=== PATIENT | male | born 1960 | race Caucasian/White ===

== ENCOUNTER → 2020-01-11 10:02 | Outpatient (BNVA) | payer OTHER, SELFPAY | PROVIDERS: Family Provider Family Medicine; PCP Family Medicine; Visit Provider Otolaryngology | DX: K13.0 Diseases of lips (principal) | CPT/HCPCS: 99204; 99214 ==

== ENCOUNTER → 2021-03-05 10:19 | Outpatient (BNVA) | payer OTHER, SELFPAY | PROVIDERS: Family Provider Family Medicine; PCP Family Medicine; Visit Provider Surgery | DX: Z01.812 Encounter for preprocedural laboratory examination (principal); Z20.822 Contact with and (suspected) exposure to COVID-19 | CPT/HCPCS: 87635 ==

== ENCOUNTER 2021-03-08 05:52 | Day surgery (SDC) | payer OTHER, SELFPAY ==
[2021-03-06 08:54] VITALS: BMI 23.7
[2021-03-06 14:58] VITALS: BMI 27.2
[2021-03-08 06:23] VITALS: BP 149/91; PULSE 83; RESP 18; TEMP 36.3; O2SAT 96
[2021-03-08] MEDS: sodium chloride 0.9% 1,000 ML 30 ML IV (06:32)
--- NOTE | 2021-03-08 06:35 | ANES.PREANE2 ---
Pre-Anesthetic Assessment Pre-Anesthetic Assessment: Height/Weight: Height 1.78 m Weight 86.183 kg Temp Pulse Resp BP Pulse Ox 97.3 F L 83 18 149/91 96 03/08/21 06:23 03/08/21 06:23 03/08/21 06:23 03/08/21 06:23 03/08/21 06:23 Preop Diagnosis: screening Proposed Procedure: Operation Date: 03/08/21 07:00 Proposed Procedures p Colonoscopy 13263 Z12.11(Not Applicable) - Luiz Chávez MD Familial anesthetic complications: none Was Beta Naif taken within 24 hours: N/A Was Clonidine taken within 24 hours: N/A Last intake: Intake Last Liquid Date 03/07/21 Last Solid Date 03/06/21 Social: Social History: Alcohol Exam: Pre-Anes Outpt Exam: alert, oriented x 3 and clear to auscultation bilaterally Airway: Submandibular: WNL Cervical ROM: WNL MP: 2 Dentition: Full History/ROS: No significant history except as noted CV/HEM: CV/HEM: HTN : : None reported Hepatic: Hepatic: None reported GI: GI: None reported Metabolic: Metabolic: None reported Musc/skel: Musc/skel: None reported Neuropsych: Neuropsych: None reported Anesthetic Plan: ASA status: 2 Anesthesia: Anesthesia Evaluation and MAC Risk of > 500 ml blood loss (7ml/kg in children): No Meds/Allergies Current Medications: Current Medications Generic Name Dose Route Start Last Admin Trade Name Freq PRN Reason Stop Dose Admin Sodium Chloride 1,000 mls @ 30 ml s/hr 03/08/21 06:15 03/08/21 06:32 Sodium Chloride 0.9% IV 03/09/21 06:14 30 mls/hr .Q24H JENNY Administration PFSH Anesthesia PFSH: Medical History Deviated septum Lip mass precancerous lesion removed 1 year ago Family History Mother Dementia Father Cancer Social History Smoking and tobacco status: former smoker Alcohol intake: current Alcohol intake frequency: 0-2 Drinks per Day Alcohol type: beer Desire information about alcohol rehabilitation?: No Data Anesthesia Cardiac Studies: No Data to Display
--- NOTE | 2021-03-08 06:38 | W.PM.OPSUD ---
Surgery/Procedure H&P Update DATE OF PROCEDURE: March 08, 2021 DATE H&P PERFORMED: 02/27/21 H&P UPDATE INFORMATION: No changes to prior documentation PLANNED PROCEDURE: Operation Date: 03/08/21 07:00 Proposed Procedures p Colonoscopy 16110 Z12.11(Not Applicable) - Luiz Chávez MD
[2021-03-08 07:14] VITALS: BP 131/81; PULSE 100; RESP 18; TEMP 37.1; O2SAT 100
[2021-03-08 07:25] VITALS: BP 125/86; PULSE 71; RESP 18; TEMP 36.6; O2SAT 96
--- NOTE | 2021-03-08 08:24 | ANE.PACU2 ---
Inpatient post-anesthesia follow up: Airway intact: Yes Vital signs: Temperature 97.8 F Pulse Rate 71 Respiratory Rate 18 Blood Pressure 125/86 Pulse Oximetry 96 Oxygen Delivery Me thod Room Air Oxygen Flow Rate Fraction of Inspir ed Oxygen Hydration adequate: Yes Nausea and vomiting: No Mental status: Baseline
== END 2021-03-08 07:39 | disposition home or self-care (01) ==
PROVIDERS: Visit Provider Surgery
PROC: 0DJD8ZZ Inspection of Lower Intestinal Tract, Via Natural or Artificial Opening Endoscopic (ICD-10-PCS; CPT 45378; principal; 2021-03-08 07:00)
DX: Z12.11 Encounter for screening for malignant neoplasm of colon (principal); K64.8 Other hemorrhoids; D12.0 Benign neoplasm of cecum; I10 Essential (primary) hypertension; Z87.891 Personal history of nicotine dependence; E78.5 Hyperlipidemia, unspecified; Z79.82 Long term (current) use of aspirin
CPT/HCPCS: 12345; 45385; 88305; 96360; J2704; J7030

== ENCOUNTER 2022-01-22 06:00 | Outpatient (RCR) | payer OTHER, SELFPAY | END 2022-01-24 23:59 | disposition home or self-care (01) | LOC: SPT 06:00 | DX: M25.512 Pain in left shoulder (principal) | CPT/HCPCS: 97161 ==

== ENCOUNTER 2022-01-25 06:00 | Outpatient (RCR) | payer OTHER, SELFPAY | END 2022-02-23 23:59 | disposition home or self-care (01) | LOC: SPT 06:00 | DX: M25.512 Pain in left shoulder (principal) | CPT/HCPCS: 97110 ==

== ENCOUNTER 2022-02-24 06:00 | Outpatient (RCR) | payer OTHER, SELFPAY | END 2022-03-07 23:59 | disposition home or self-care (01) | LOC: SPT 06:00 | DX: M25.512 Pain in left shoulder (principal) | CPT/HCPCS: 97110 ==

== ENCOUNTER → 2022-02-28 14:07 | Outpatient (BNVA) | payer OTHER, SELFPAY | PROVIDERS: Visit Provider Nurse Practitioner Family | DX: J02.9 Acute pharyngitis, unspecified (principal); J01.90 Acute sinusitis, unspecified | CPT/HCPCS: 87880 ==

== ENCOUNTER → 2022-05-08 08:01 | Outpatient (BNVA) | payer OTHER, SELFPAY | PROVIDERS: Visit Provider Clinical Nurse Specialist Adult Health | DX: Z20.822 Contact with and (suspected) exposure to COVID-19 (principal) | CPT/HCPCS: 87426 ==

== ENCOUNTER → 2022-12-20 07:52 | Outpatient (BNVA) | payer OTHER, SELFPAY | PROVIDERS: PCP Clinical Nurse Specialist Adult Health; Visit Provider Clinical Nurse Specialist Adult Health | DX: Z00.00 Encounter for general adult medical examination without abnormal findings (principal); R73.03 Prediabetes | CPT/HCPCS: 80053; 80061; 83036; 84154; 85025 ==

== ENCOUNTER → 2024-01-02 07:25 | Outpatient (BNVA) | payer OTHER, SELFPAY | PROVIDERS: PCP Clinical Nurse Specialist Adult Health; Visit Provider Clinical Nurse Specialist Adult Health | DX: E78.5 Hyperlipidemia, unspecified (principal); R73.03 Prediabetes | CPT/HCPCS: 80053; 80061; 83036; 85025 ==

== ENCOUNTER 2024-08-01 15:06 | Observation (INO) | payer OTHER, SELFPAY ==
[2024-08-01] VITALS (9 sets, daily range): BP systolic 112–134; BP diastolic 62–80; PULSE 68–151; RESP 13–20; TEMP 36.3–36.6; O2SAT 93–98; BMI 27.5
--- NOTE | 2024-08-01 15:04 | ECG_ITS ---
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 Measurements Intervals [place] Rate: 147 P: 0 [place]: 0 QRS: 1 QRSD: 87 T: 98 QT: 223 QTc: 349 Interpretive Statements ATRIAL FLUTTER/TACHYCARDIA WITH RAPID VENTRICULAR RESPONSE POSSIBLE RIGHT VENTRICULAR CONDUCTION DELAY [RSR (QR) IN V1/V2] NONSPECIFIC ST & T-WAVE ABNORMALITY No previous ECG available for comparison Electronically Signed On 08-01-2024 22:42:29 CDT by Des Ragsdale M.D. [email or web address] [email or web address]/store/[id number]
--- NOTE | 2024-08-01 15:21 | XRR_ITS ---
PROCEDURE INFORMATION: Exam: XR Chest Exam date and time: 08/01/2024 3:55 PM Age: 63 years old Clinical indication: Patient HX: Tachycardia; SOB; HTN TECHNIQUE: Imaging protocol: Radiologic exam of the chest. Views: 1 view. COMPARISON: No relevant prior studies available. FINDINGS: Lungs: Lungs appear clear without consolidation. Pleural spaces: No pneumothorax or pleural effusion. Heart/Mediastinum: Normal size of the cardiac silhouette. Bones/joints: Regional osseous structures are unremarkable. XR/XR chest 1V portable [id number] IMPRESSION: No radiographically apparent cardiopulmonary disease.
[2024-08-01] MEDS: dilTIAZem 5 mg/mL SDV 5 mL 20 MG IVP (15:28)
[2024-08-01 15:31] LABS: Basophils % 0.4 %; Eosinophils # 0.1 10^3/uL (0.0-0.8); Eosinophils % 1.7 %; Hematocrit 44.7 % (37-53); Lymphocytes # 1.4 10^3/uL (0.8-4.8); Lymphocytes % 18.2 %; Mean Corpuscular HGB Conc 33.3 g/dL (30-55); Mean Corpuscular Hemoglobin 29.2 pg (27-33); Mean Corpuscular Volume 87.6 fl (82-101); Mean Platelet Volume 9.5 fL (7.4-10.4); Monocytes # 0.5 10^3/uL (0.2-0.9); Monocytes % 6.7 %; Neutrophils # 5.57 10^3/uL (1.8-7.7); Neutrophils % 72.7 %; Nucleated Red Blood Cells % 0 %; Platelet Count 270 10^3/cmm (157-399); Red Cell Distribution Width 13.1 % (12.1-15.1); White Blood Count 7.65 10^3/uL (3.29-11.43)
--- NOTE | 2024-08-01 15:36 | W.ED.SOB ---
Documented by User: Carlos Holland DO 08/01/24 15:39 HPI - SOB/Dyspnea General: Chief Complaint: Shortness of Breath/Dyspnea Stated Complaint: sob,b/p and pluse high Time Seen by Provider: 08/01/24 15:21 History of Present Illness: HPI Narrative: Who presents to the ER complaining of fast heart rate shortness of breath. Today after he returned fishing he sat down and developed shortness of fast heart rate. It was about 2 hours prior to arrival. Patient is never had any problem like this before nor any cardiac history. Related Data Home Medications Medication Instructions Recorded Confirmed aspirin 81 mg tablet,delayed 81 mg PO DAILY 12/17/22 01/09/24 release (Adult Low Dose Aspirin) Previous Rx's Medication Instructions Recorded triamcinolone acetonide 0.5 % 1 applic topical DAILY #15 grams 12/17/22 topical cream Magic Mouthwash-Mix 1 part 10 ml buccal 2XD PRN mouth 12/29/23 diphenhydramine, 1 part nystatin, irritation #120 mL and 1 part mylanta-swish and spit nystatin 100,000 unit/mL oral 100,000 unit buccal DAILY PRN 12/29/23 suspension mouth irritation #60 mL pravastatin 40 mg tablet 40 mg PO DAILY #90 tabs 02/11/24 losartan 100 mg tablet 100 mg PO DAILY #90 tabs 06/18/24 Allergies Allergy/AdvReac Type Severity Reaction Status Date / Time No Known Allergies Allergy Verified 08/01/24 15:15 Review of Systems General: Reports: 10 or more systems reviewed and unremarkable except in HPI and below PFSH ED PFSH: Medical History Prediabetes 5.8% A1C 12/2023 Elevated LFTs Seasonal allergies GERD (gastroesophageal reflux disease) Hyperlipidemia Hypertension Deviated septum Lip mass precancerous lesion removed 1 year ago Surgical History History of anterior cruciate ligament surgery removed acl left knee History of colonoscopy April 2021-polyp removed- repeat 2025 Family History Mother Dementia Lung disease Father Cancer Social History Smoking and tobacco/nicotine status: former use of tobacco/nicotine Alcohol intake: current Alcohol intake frequency: 0-2 Drinks per Day Alcohol type: beer Substance/Drug Use: never Physical Exam Const: COMMON NORMALS: no acute distress, average body habitus, patient oriented x3, no limitations, healthy appearing, alert and well nourished HENMT: COMMON NORMALS: normocephalic, atraumatic, hearing grossly normal bilaterally, external ears normal, Normal external nose present and moist oral mucous membranes HEAD & SCALP: normocephalic and atraumatic NOSE: Normal external nose present EXTERNAL EAR: Yes external ears normal Neck/C-Spine: COMMON NORMALS: full ROM, no lymphadenopathy, supple, no meningeal signs, no JVD and Thyroid normal THYROID: Thyroid normal Chest: COMMONS NORMALS: normal inspection of the chest and normal palpation of entire chest wall Resp: COMMON NORMALS: normal respiratory effort, No retractions, No use of accessory muscles and clear to auscultation bilaterally AUSCULTATION: clear to auscultation bilaterally Cardio: COMMON NORMALS: no JVD, S1 normal heart sound present, S2 normal heart sound present, No gallops present (Cardio), No clicks present (Cardio) and No murmurs present (Cardio); negative for regular rhythm (Irregularly irregular tachycardic rhythm) RHYTHM: abnormal rhythm (Irregularly irregular tachycardic rhythm) HEART SOUNDS: S1 normal heart sound present and S2 normal heart sound present GI: COMMON NORMALS: Normal to inspection, nondistended, normoactive bowel sounds present, Soft to palpation, non-tender, No hepatosplenomegaly present and no masses PALPATION: Yes Soft to palpation and Yes No hepatosplenomegaly present Neuro: COMMON NORMALS: patient oriented x3 SENSORIUM/ORIENTATION: Yes alert MENINGEAL SIGNS: Yes no meningeal signs Course Vital Signs: Vital signs: Vital Signs Temperature 97.4 F L 08/01/24 15:12 Pulse Rate 70 08/01/24 20:29 Respiratory Rate 20 H 08/01/24 20:09 Blood Pressure 122/62 08/01/24 20:29 Pulse Oximetry 98 08/01/24 20:29 Oxygen Delivery Me thod Room Air 08/01/24 15:12 MDM - SOB/Dyspnea Medical Records I reviewed the patient's medical records. Lab Data I reviewed the patient's lab results. 08/01/24 15:25 08/01/24 15:25 Labs/Radiology: Radiology Impressions Chest X-Ray 08/01/24 15:21 IMPRESSION: No radiographically apparent cardiopulmonary disease. Laboratory Results WBC 7.65 10^3/uL (3.29-11.43) 08/01/24 15:25 RBC 5.10 10^6/uL (3.85-5.65) 08/01/24 15:25 Hgb 14.90 g/dL (11.27-16.99) 08/01/24 15:25 Hct 44.7 % (37-53) 08/01/24 15:25 MCV 87.6 fl (82-101) 08/01/24 15:25 MCH 29.2 pg (27-33) 08/01/24 15:25 MCHC 33.3 g/dL (30-55) 08/01/24 15:25 RDW 13.1 % (12.1-15.1) 08/01/24 15:25 Plt Count 270 10^3/cmm (157-399) 08/01/24 15:25 MPV 9.5 fL (7.4-10.4) 08/01/24 15:25 Neut % (Auto) 72.7 % 08/01/24 15:25 Lymph % (Auto) 18.2 % 08/01/24 15:25 [place] % (Auto) 6.7 % 08/01/24 15:25 Eos % (Auto) 1.7 % 08/01/24 15:25 Baso % (Auto) 0.4 % 08/01/24 15:25 Neut # (Auto) 5.57 10^3/uL (1.8-7.7) 08/01/24 15:25 Lymph # (Auto) 1.4 10^3/uL (0.8-4.8) 08/01/24 15:25 [place] # (Auto) 0.5 10^3/uL (0.2-0.9) 08/01/24 15:25 Eos # (Auto) 0.1 10^3/uL (0.0-0.8) 08/01/24 15:25 Baso # (Auto) 0.0 10^3/uL (0.0-0.1) 08/01/24 15:25 Nucleated RBC % (auto) 0 % 08/01/24 15:25 Nucleated RBCs # 0.0 /100WBC 08/01/24 15:25 PT 12.30 SECONDS (12.1-14.9) 08/01/24 15:25 INR 0.89 (0.8-1.2) 08/01/24 15:25 Sodium 139 mmol/L (136-145) 08/01/24 15:25 Potassium 4.1 mmol/L (3.5-5.1) 08/01/24 15:25 Chloride 105 mmol/L (98-107) 08/01/24 15:25 Carbon Dioxide 22 mmol/L (22-29) 08/01/24 15:25 Anion Gap 16.1 (5-19) 08/01/24 15:25 BUN 14 mg/dL (8-23) 08/01/24 15:25 Creatinine 1.1 mg/dL (0.7-1.2) 08/01/24 15:25 GFR Calculation 67.4 mL/min (90-130) L 08/01/24 15:25 Glucose 149 mg/dL (65-115) H 08/01/24 15:25 Calculated Osmolality 291 mOsm/kg (285-295) 08/01/24 15:25 Lactic Acid 1.1 mmol/L (0.5-2.2) 08/01/24 17:39 Calcium 8.7 mg/dL (8.5-10.5) 08/01/24 15:25 Total Bilirubin 0.4 mg/dL (0.15-1.2) 08/01/24 15:25 AST 31 U/L (0-40) 08/01/24 15:25 ALT 50 U/L (0-41) H 08/01/24 15:25 Alkaline Phosphatase 105 U/L (40-130) 08/01/24 15:25 Creatine Kinase 141 U/L (39-308) 08/01/24 15:25 Troponin T Baseline 7 ng/L (0-15) 08/01/24 15:25 Troponin T 120 Minute 8.57 ng/L (0-15) 08/01/24 17:39 Delta Troponin T 1.57 ABS# (0-10) 08/01/24 17:39 Total Protein 7.2 g/dL (6.6-8.7) 08/01/24 15:25 Albumin 4.6 g/dL (3.5-5.2) 08/01/24 15:25 Globulin 2.6 g/dL (1.3-4.6) 08/01/24 15:25 Procalcitonin 0.07 ng/mL (0-0.5) 08/01/24 15:25 TSH 1.96 uIU/mL (0.27-4.20) 08/01/24 15:25 All radiology interpretation(s) finalized by discharge Discharge Plan Discharge Patient Disposition: Placed in Observation Admit Provider: Chris Arenas Clinical Impression: Atrial fibrillation with RVR Condition: Stable Coding Level of Care Code ED Accreditation Coordinator for Chg Fwd Documented by User: Rocky Brock DO 08/01/24 20:51 HPI - SOB/Dyspnea General: Chief Complaint: Shortness of Breath/Dyspnea Stated Complaint: sob,b/p and pluse high Time Seen by Provider: 08/01/24 15:21 Related Data Home Medications Medication Instructions Recorded Confirmed aspirin 81 mg tablet,delayed 81 mg PO DAILY 12/17/22 01/09/24 release (Adult Low Dose Aspirin) Previous Rx's Medication Instructions Recorded triamcinolone acetonide 0.5 % 1 applic topical DAILY #15 grams 12/17/22 topical cream Magic Mouthwash-Mix 1 part 10 ml buccal 2XD PRN mouth 12/29/23 diphenhydramine, 1 part nystatin, irritation #120 mL and 1 part mylanta-swish and spit nystatin 100,000 unit/mL oral 100,000 unit buccal DAILY PRN 12/29/23 suspension mouth irritation #60 mL pravastatin 40 mg tablet 40 mg PO DAILY #90 tabs 02/11/24 losartan 100 mg tablet 100 mg PO DAILY #90 tabs 06/18/24 Allergies Allergy/AdvReac Type Severity Reaction Status Date / Time No Known Allergies Allergy Verified 08/01/24 15:15 PFS ED PFS: Medical History Prediabetes 5.8% A1C 12/2023 Elevated LFTs Seasonal allergies GERD (gastroesophageal reflux disease) Hyperlipidemia Hypertension Deviated septum Lip mass precancerous lesion removed 1 year ago Surgical History History of anterior cruciate ligament surgery removed acl left knee History of colonoscopy April 2021-polyp removed- repeat 2025 Family History Mother Dementia Lung disease Father Cancer Social History Smoking and tobacco/nicotine status: former use of tobacco/nicotine Alcohol intake: current Alcohol intake frequency: 0-2 Drinks per Day Alcohol type: beer Substance/Drug Use: never Course Vital Signs: Vital signs: Vital Signs Temperature 97.4 F L 08/01/24 15:12 Pulse Rate 70 08/01/24 20:29 Respiratory Rate 20 H 08/01/24 20:09 Blood Pressure 122/62 08/01/24 20:29 Pulse Oximetry 98 08/01/24 20:29 Oxygen Delivery Me thod Room Air 08/01/24 15:12 MDM - SOB/Dyspnea Medical Decision Making 63-year-old male patient checked out to me at shift change. This patient presented in new onset atrial fibrillation with rapid ventricular rate. He was given a Cardizem bolus, then oral Cardizem, then drip. He has since converted to sinus rhythm. He is afebrile. Current heart rate is sinus at 70 with blood pressure 122/62. CBC is normal. BMP is not remarkable. Chest x-ray is negative. Lactic acid is normal. TSH is 2. Delta is 2. Because onset is new, the patient has no prior history of coronary disease, and required significant amounts of medication for rate control/conversion, will observe. Echo in the morning, etc. He will go to the CSU. Lab Data 08/01/24 15:25 08/01/24 15:25 Labs/Radiology: Radiology Impressions Chest X-Ray 08/01/24 15:21 IMPRESSION: No radiographically apparent cardiopulmonary disease. Laboratory Results WBC 7.65 10^3/uL (3.29-11.43) 08/01/24 15:25 RBC 5.10 10^6/uL (3.85-5.65) 08/01/24 15:25 Hgb 14.90 g/dL (11.27-16.99) 08/01/24 15:25 Hct 44.7 % (37-53) 08/01/24 15:25 MCV 87.6 fl (82-101) 08/01/24 15:25 MCH 29.2 pg (27-33) 08/01/24 15:25 MCHC 33.3 g/dL (30-55) 08/01/24 15:25 RDW 13.1 % (12.1-15.1) 08/01/24 15: Plt Count 270 10^3/cmm (157-399) 08/01/24 15:25 MPV 9.5 fL (7.4-10.4) 08/01/24 15:25 Neut % (Auto) 72.7 % 08/01/24 15:25 Lymph % (Auto) 18.2 % 08/01/24 15:25 [place] % (Auto) 6.7 % 08/01/24 15:25 Eos % (Auto) 1.7 % 08/01/24 15:25 Baso % (Auto) 0.4 % 08/01/24 15:25 Neut # (Auto) 5.57 10^3/uL (1.8-7.7) 08/01/24 15:25 Lymph # (Auto) 1.4 10^3/uL (0.8-4.8) 08/01/24 15:25 [place] # (Auto) 0.5 10^3/uL (0.2-0.9) 08/01/24 15:25 Eos # (Auto) 0.1 10^3/uL (0.0-0.8) 08/01/24 15:25 Baso # (Auto) 0.0 10^3/uL (0.0-0.1) 08/01/24 15:25 Nucleated RBC % (auto) 0 % 08/01/24 15:25 Nucleated RBCs # 0.0 /100WBC 08/01/24 15:25 PT 12.30 SECONDS (12.1-14.9) 08/01/24 15:25 INR 0.89 (0.8-1.2) 08/01/24 15:25 Sodium 139 mmol/L (136-145) 08/01/24 15:25 Potassium 4.1 mmol/L (3.5-5.1) 08/01/24 15:25 Chloride 105 mmol/L (98-107) 08/01/24 15:25 Carbon Dioxide 22 mmol/L (22-29) 08/01/24 15:25 Anion Gap 16.1 (5-19) 08/01/24 15:25 BUN 14 mg/dL (8-23) 08/01/24 15:25 Creatinine 1.1 mg/dL (0.7-1.2) 08/01/24 15:25 GFR Calculation 67.4 mL/min (90-130) L 08/01/24 15:25 Glucose 149 mg/dL (65-115) H 08/01/24 15:25 Calculated Osmolality 291 mOsm/kg (285-295) 08/01/24 15:25 Lactic Acid 1.1 mmol/L (0.5-2.2) 08/01/24 17:39 Calcium 8.7 mg/dL (8.5-10.5) 08/01/24 15:25 Total Bilirubin 0.4 mg/dL (0.15-1.2) 08/01/24 15:25 AST 31 U/L (0-40) 08/01/24 15:25 ALT 50 U/L (0-41) H 08/01/24 15:25 Alkaline Phosphatase 105 U/L (40-130) 08/01/24 15:25 Creatine Kinase 141 U/L (39-308) 08/01/24 15:25 Troponin T Baseline 7 ng/L (0-15) 08/01/24 15:25 Troponin T 120 Minute 8.57 ng/L (0-15) 08/01/24 17:39 Delta Troponin T 1.57 ABS# (0-10) 08/01/24 17:39 Total Protein 7.2 g/dL (6.6-8.7) 08/01/24 15:25 Albumin 4.6 g/dL (3.5-5.2) 08/01/24 15:25 Globulin 2.6 g/dL (1.3-4.6) 08/01/24 15:25 Procalcitonin 0.07 ng/mL (0-0.5) 08/01/24 15:25 TSH 1.96 uIU/mL (0.27-4.20) 08/01/24 15:25 Discharge Plan Discharge Patient Disposition: Placed in Observation Admit Provider: Chris Arenas Clinical Impression: Atrial fibrillation with RVR Condition: Stable Coding Level of Care Code ED Accreditation Coordinator for Elif Nails
[2024-08-01 15:42] LABS: INR 0.89 (0.8-1.2)
[2024-08-01 15:48] LABS: Troponin(5th) Baseline 7 ng/L (0-15)
[2024-08-01 16:03] LABS: Alanine Aminotransferase 50 U/L (0-41); Albumin Level 4.6 g/dL (3.5-5.2); Alkaline Phosphatase 105 U/L (40-130); Aspartate Amino Transferase 31 U/L (0-40); Blood Urea Nitrogen 14 mg/dL (8-23); Calcium 8.7 mg/dL (8.5-10.5); Carbon Dioxide 22 mmol/L (22-29); Chloride 105 mmol/L (98-107); Creatinine Clr Calc Pharmacy 75.4588; Globulin 2.6 g/dL (1.3-4.6); Glomerular Filtration Rate 67.4 mL/min (90-130); Glucose 149 mg/dL (65-115); Osmolality Calculated 291 mOsm/kg (285-295); Sodium 139 mmol/L (136-145); Thyroid Stimulating Hormone 1.96 uIU/mL (0.27-4.20); Total Bilirubin 0.4 mg/dL (0.15-1.2); Total Protein 7.2 g/dL (6.6-8.7)
[2024-08-01 16:04] LABS: Anion Gap 16.1 (5-19); Potassium 4.1 mmol/L (3.5-5.1)
[2024-08-01] MEDS: dilTIAZem 30 mg Tablet PO ×2 (16:42→21:20)
--- NOTE | 2024-08-01 17:49 | ECG_ITS ---
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 Measurements Intervals [place] Rate: 117 P: 0 [place]: 0 QRS: 2 QRSD: 89 T: 46 QT: 311 QTc: 434 Interpretive Statements ATRIAL FIBRILLATION WITH RAPID VENTRICULAR RESPONSE ABNORMAL RHYTHM ECG Compared to ECG 08/01/2024 15:04:22 Atrial flutter no longer present T-wave abnormality no longer present Electronically Signed On 08-01-2024 23:04:41 CDT by Des Ragsdale M.D. [email or web address] Therapeuticsselect medical [facility].[employer]/store/[id number]
[2024-08-01 18:06] LABS: Troponin 5 2HR 8.57 ng/L (0-15); Troponin 5 2HR Delta 1.57 ABS# (0-10)
[2024-08-01 19:57] LABS: Lactic Sepsis W/Reflex 1.1 mmol/L (0.5-2.2)
[2024-08-01 19:57] LABS: Creatine Phosphokinase 141 U/L (39-308)
[2024-08-01 20:04] LABS: Procalcitonin 0.07 ng/mL (0-0.5)
--- NOTE | 2024-08-01 20:25 | PC.NURSE ---
Report was called to Davina ROE in CSU. All questions and concerns were addressed at time of report.
[2024-08-01] MEDS: sodium chloride 0.9% 1,000 ML 75 ML IV (21:20)
--- NOTE | 2024-08-01 21:21 | ECG_ITS ---
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 Measurements Intervals [place] Rate: 67 P: 26 VA: 148 QRS: 11 QRSD: 92 T: 31 QT: 402 QTc: 425 Interpretive Statements SINUS RHYTHM POSSIBLE RIGHT VENTRICULAR CONDUCTION DELAY [RSR (QR) IN V1/V2] Compared to ECG 08/01/2024 17:49:59 Atrial fibrillation no longer present Electronically Signed On 08-01-2024 23:08:40 CDT by Des Ragsdale M.D. [email or web address] sunflower county hospitalCreative Alliesuniversity hospitals [facility].[employer]/store/[id number]
--- NOTE | 2024-08-01 21:34 | P.HP_ITS ---
Providers/Chief Complaint 2 Admitting Physician: Chris Arenas MD Primary Care Provider: Hari Burk Chief Complaint: sob,b/p and pluse high History of Present Illness Lee Willis is a 63 year old male With a past medical history of hypertension, prediabetes, who was in his usual state of health until this afternoon when he started to feel palpitations while he was fishing. Patient states he has never had palpitations before. No known past history of A-fib or SVT. Upon presentation today patient was found to be in A-fib with RVR with heart rate in the 150s. He felt short of breath at this time. He received a Cardizem bolus and then he was started on a drip. He converted to sinus rhythm with heart rate ranging between 60 to 70 bpm. At the time of this assessment patient's heart rate is 61/min, blood pressure 122/73. He denies any dizziness. His electrolytes are grossly within normal limits. TSH is normal. Troponin series unremarkable. Denies any recent change in his medications.no past h/o CVA Review of Systems 2 General: Reports: 10 or more systems reviewed and unremarkable except in HPI and below Const: Denies: fever(s), chills or body aches Eyes: Denies: change in vision, blurry vision or photophobia ENMT: Reports: hoarseness; Denies: throat pain, enlarged tonsils, odynophagia or nasal congestion Card: Denies: chest pain, palpitations, irregular heart rhythm, edema, swelling of feet/ankles, lightheadedness, pre-syncope, dyspnea on exertion or orthopnea Resp: Denies: dyspnea, productive cough, non-productive cough, wheezing, stridor, pain on inspiration, change in phlegm color, hemoptysis or chest congestion GI: Denies: abdominal pain, nausea, vomiting, hematemesis, coffee ground emesis, dysphagia, heartburn, diarrhea, constipation, GI cramping, change in stool character, hematochezia or melena : Denies: flank pain, dysuria, urinary frequency, urinary urgency, urinary hesitancy or hematuria Musc: Denies: neck pain, back pain, extremity pain, joint swelling, joint warmth or deformity Neuro: Denies: headache(s), numbness in extremities, weakness in extremities, sensory changes, difficulty walking, frequent falls, dizziness, vertigo, behavioral changes, Slurred speech present or seizure-like activity Psych: Denies: anxiety, depression, suicidal ideation or homicidal ideation Endo: Denies: polyuria, polydipsia, tired all the time, cold intolerance or hot flashes Je[place]arlos/Lymph: Denies: easy bruising or easy bleeding Medications/Allergies Home Medications Medication Instructions Recorded Confirmed Last Taken Type aspirin 81 mg tablet,delayed 81 mg PO BEDTIME 12/17/22 08/01/24 Unknown History release (Adult Low Dose Aspirin) levocetirizine 5 mg tablet 5 mg PO BEDTIME 08/01/24 08/01/24 Unknown History losartan 100 mg tablet 100 mg PO BEDTIME 08/01/24 08/01/24 Unknown History pravastatin 40 mg tablet 40 mg PO BEDTIME 08/01/24 08/01/24 Unknown History Allergies Allergy/AdvReac Type Severity Reaction Status Date / Time No Known Allergies Allergy Verified 08/01/24 15:15 PFSH Acute 2 PFSH: Medical History Prediabetes 5.8% A1C 12/2023 Elevated LFTs Seasonal allergies GERD (gastroesophageal reflux disease) Hyperlipidemia Hypertension Deviated septum Lip mass precancerous lesion removed 1 year ago Surgical History History of anterior cruciate ligament surgery removed acl left knee History of colonoscopy April 2021-polyp removed- repeat 2025 Family History Mother Dementia Lung disease Father Cancer Social History Smoking and tobacco/nicotine status: former use of tobacco/nicotine Alcohol intake: current Alcohol intake frequency: 0-2 Drinks per Day Alcohol type: beer Substance/Drug Use: never Vitals/I&O/Wt Last Vital Signs Temp 97.7 F 08/01/24 20:44 Pulse 74 08/01/24 20:44 Resp 13 08/01/24 20:44 BP 127/75 08/01/24 20:44 Pulse Ox 98 08/01/24 20:29 O2 Del Method Room Air 08/01/24 15:12 Weight last 48 hrs Weight 91.7 kg Weight 87.09 kg Physical Exam 2 Narrative: General: No acute distress, AO x3 HEENT: PERRLA, pupils bilaterally equal and reactive, pallors not present Chest: Normal vesicular breath sounds, no added sounds, equal good air entry bilaterally CVS: S1-S2 regular, no murmurs, no tachycardia, no gallops, no rubs Abdomen: Soft, nontender, no organomegaly, bowel sounds present Neuro: No focal deficits, no facial deformity, AO x3, power 5/5 in all limbs Extremities: no edema clubbing or cyanosis Data 08/01/24 15:25 08/01/24 15:25 Other data: XR/XR chest 1V portable [id number] IMPRESSION: No radiographically apparent cardiopulmonary disease. A&P Assessment and plan (1) Atrial fibrillation with RVR: New onset A-fib with RVR. admit to [facility] with continous telemetry Patient denies any past known history of arrhythmias. Baseline troponin at 7, 2 hours at 8, 6 hours at 11, no significant delta at 2 hours. He received Cardizem push in the emergency room and was started on a Cardizem infusion. He converted into normal sinus rhythm while being in the emergency room. The time of this assessment heart rate is in the 60s, blood pressure 122/73. Once.Will start patient on Cardizem 30 mg every 6 hours for rate control. Dose may need to be titrated based on response. Check echocardiogram to evaluate for underlying structural valvular abnormalities. CHADS2 Vasc2 at 1 for hypertension. Will check HbA1c as it may alter his scoring., previously patient was prediabetic. Discussed with him starting anticoagulation to minimize risk of stroke, patient would like to think a little bit more about this. Discussed options to start anticoagulation with DOACs versus increasing aspirin to 325 mg for now. (2) Hypertension: Continue home dose of losartan 100 mg p.o. at bedtime Qualifiers: Hypertension type: primary hypertension Qualified Code(s): I10 - Essential (primary) hypertension Plan DVT prophylaxis: Low risk, SCDs Full code Attestations 2 Medical Necessity Statement*: Less than 2 midnight stay is anticipated for new onset A-fib with RVR evaluation Coding Level of Care Code Acute Code for Chg Fwd Moderate MDM includes number and complexity of problems actively addressed during encounter, amount and/or complexity of data reviewed/ordered and described risk of complication, morbidity or mortality of management as documented Diagnoses Atrial fibrillation with RVR I48.91 Primary hypertension I10 Hypertension type: primary hypertension
[2024-08-01 21:40] LABS: Iron 101 ug/dL (59-158); Percent Saturation 33.4 % (20-50); Total Iron Binding Capacity 302 mcg/dl; Unsaturated Iron Binding 201 ug/dL (112-347)
[2024-08-01 21:55] LABS: Vitamin B12 490 pg/mL (232-1245)
[2024-08-01 22:02] LABS: Bilirubin Urine Negative (Negative); Blood Urine Negative (Negative); Glucose Urine UA Negative (Normal); Ketones Urine Negative (Negative); Leukocyte Esterase Urine Negative (Negative); Nitrate Urine Negative (Negative); Protein Urine Negative (Negative); Specific Gravity, Urine 1.019 (1.005-1.030); Urine Appearance Clear (CLEAR); Urine Color Yellow (Yellow); Urobilinogen Urine 0.2 mg/dL (Negative)
[2024-08-01 22:03] LABS: Troponin 5 6HR 11.83 ng/L (0-15); Troponin 5 6HR Delta 4.83 ng/L (0-12)
[2024-08-01 22:05] LABS: Add Urine Microscopic? YES; Bacteria Urine None Seen /hpf; RBC Urine 0-2 /hpf (0-2); Squamous Epithelial Cell Urine 0-5 /hpf (0-5); WBC Urine 0-5 /hpf (0-5)
[2024-08-01] MEDS: aspirin 81 mg EC Tablet PO (22:09)
[2024-08-01] MEDS: atorvastatin 40 mg Tablet 20 MG PO (22:09)
[2024-08-01 22:29] LABS: D Dimer 0.41 ug/mLFEU (0-0.59)
--- NOTE | 2024-08-02 03:35 | PC.NURSE ---
patient running sinus bradycardia in low 50's, notified Dr Li and received order to hold cardizem dose
[2024-08-02 04:00] VITALS: BP 122/73; PULSE 62; RESP 23; TEMP 36.7
[2024-08-02 05:34] VITALS: PULSE 61
[2024-08-02 07:02] LABS: Basophils % 0.7 %; Eosinophils # 0.2 10^3/uL (0.0-0.8); Eosinophils % 4.4 %; Hematocrit 39.1 % (37-53); Lymphocytes # 1.4 10^3/uL (0.8-4.8); Lymphocytes % 31.7 %; Mean Corpuscular Hemoglobin 29.3 pg (27-33); Mean Corpuscular Volume 88.7 fl (82-101); Mean Platelet Volume 9.9 fL (7.4-10.4); Monocytes # 0.4 10^3/uL (0.2-0.9); Monocytes % 9.3 %; Neutrophils % 53.7 %; Nucleated Red Blood Cells % 0 %; Platelet Count 240 10^3/cmm (157-399); Red Blood Count 4.41 10^6/uL (3.85-5.65); Red Cell Distribution Width 13.2 % (12.1-15.1); White Blood Count 4.29 10^3/uL (3.29-11.43)
[2024-08-02 07:16] LABS: Estmated Average Glucose 123; Hemoglobin A1C 5.9 % (4.0-6.0)
[2024-08-02 07:17] VITALS: BP 119/78; PULSE 62; RESP 16; TEMP 36.6; O2SAT 98
[2024-08-02 07:19] LABS: Alanine Aminotransferase 41 U/L (0-41); Albumin Level 3.7 g/dL (3.5-5.2); Alkaline Phosphatase 76 U/L (40-130); Anion Gap 10.8 (5-19); Aspartate Amino Transferase 24 U/L (0-40); Blood Urea Nitrogen 13 mg/dL (8-23); Calcium 7.5 mg/dL (8.5-10.5); Carbon Dioxide 25 mmol/L (22-29); Chloride 108 mmol/L (98-107); Chol HDL Ratio 4.82 mg/dL (1.0-5.00); Cholesterol 135 mg/dL (0-200); Creatinine Clr Calc Pharmacy 84.5711; Globulin 2.1 g/dL (1.3-4.6); Glomerular Filtration Rate 75.2 mL/min (90-130); Glucose 124 mg/dL (65-115); HDL Cholesterol 28 mg/dL (60-100); LDL Cholesterol Calculated 84 mg/dL (50-129); Magnesium 2.1 mg/dL (1.7-2.3); Osmolality Calculated 292 mOsm/kg (285-295); Phosphorus 3.1 mg/dL (2.5-4.5); Potassium 3.8 mmol/L (3.5-5.1); Sodium 140 mmol/L (136-145); Total Bilirubin 0.5 mg/dL (0.15-1.2); Total Protein 5.8 g/dL (6.6-8.7); Triglycerides 115 mg/dL (0-150)
[2024-08-02] MEDS: famotidine 20 mg Tablet PO (08:09)
[2024-08-02] MEDS: dilTIAZem 30 mg Tablet PO ×2 (08:09→14:01)
--- NOTE | 2024-08-02 08:39 | P.DS_ITS ---
Discharge Providers Date of Admission: 08/01/24 19:33 Date of Discharge: August 02, 2024 Attending Provider at Admission: Chris Arenas MD Attending Provider at Discharge: Sarah Falcon MD Primary Care Provider: Hari Burk Diagnoses at Discharge Discharge Diagnosis (1) Atrial fibrillation with RVR: Status: Resolved (2) Hypertension: Status: Acute Qualifiers: Hypertension type: primary hypertension Qualified Code(s): I10 - Essential (primary) hypertension Reason for Visit Reason for Visit: sob,b/p and pluse high Hospital Course Hospital Course Patient presented to the hospital with palpitations while he was fishing he was diagnosed with atrial fibrillation and placed on a Cardizem drip thereby transition to oral Cardizem. [id number] was 2 points as patient is turning 64 next month. Discussed with cardiology and placed patient on Eliquis for stroke prevention. Provided patient cardiology consult as an outpatient and discharged home in stable condition. Echo was reviewed prior to discharge. Physical Exam Narrative: General: No acute distress, AO x3 HEENT: PERRLA, pupils bilaterally equal and reactive, pallors not present Chest: Normal vesicular breath sounds, no added sounds, equal good air entry bilaterally CVS: S1-S2 regular, no murmurs, no tachycardia, no gallops, no rubs Abdomen: Soft, nontender, no organomegaly, bowel sounds present Neuro: No focal deficits, no facial deformity, AO x3, power 5/5 in all limbs Extremities: no edema clubbing or cyanosis Discharge Data Studies Completed and Pending Completed Studies During Hospitalization Category Date Time Status XR chest 1V portable [id number] Stat Exams 08/01/24 15:21 Completed Pending at discharge Category Date Time Status Folate Level AM LABS Lab 08/02/24 04:00 Ordered CV. echo complete* [id number] Stat Ultrasound 08/02/24 09:30 Ordered Radiology Impressions Chest X-Ray 08/01/24 15:21 IMPRESSION: No radiographically apparent cardiopulmonary disease. Laboratory Results WBC 4.29 10^3/uL (3.29-11.43) 08/02/24 06:02 RBC 4.41 10^6/uL (3.85-5.65) 08/02/24 06:02 Hgb 12.90 g/dL (11.27-16.99) 08/02/24 06:02 Hct 39.1 % (37-53) 08/02/24 06:02 MCV 88.7 fl (82-101) 08/02/24 06:02 MCH 29.3 pg (27-33) 08/02/24 06:02 MCHC 33.0 g/dL (30-55) 08/02/24 06:02 RDW 13.2 % (12.1-15.1) 08/02/24 06:02 Plt Count 240 10^3/cmm (157-399) 08/02/24 06:02 MPV 9.9 fL (7.4-10.4) 08/02/24 06:02 Neut % (Auto) 53.7 % 08/02/24 06:02 Lymph % (Auto) 31.7 % 08/02/24 06:02 [place] % (Auto) 9.3 % 08/02/24 06:02 Eos % (Auto) 4.4 % 08/02/24 06:02 Baso % (Auto) 0.7 % 08/02/24 06:02 Neut # (Auto) 2.30 10^3/uL (1.8-7.7) 08/02/24 06:02 Lymph # (Auto) 1.4 10^3/uL (0.8-4.8) 08/02/24 06:02 [place] # (Auto) 0.4 10^3/uL (0.2-0.9) 08/02/24 06:02 Eos # (Auto) 0.2 10^3/uL (0.0-0.8) 08/02/24 06:02 Baso # (Auto) 0.0 10^3/uL (0.0-0.1) 08/02/24 06:02 Nucleated RBC % (auto) 0 % 08/02/24 06:02 Nucleated RBCs # 0.0 /100WBC 08/02/24 06:02 PT 12.30 SECONDS (12.1-14.9) 08/01/24 15:25 INR 0.89 (0.8-1.2) 08/01/24 15:25 D-Dimer 0.41 ug/mLFEU (0-0.59) 08/01/24 15:25 Sodium 140 mmol/L (136-145) 08/02/24 06:02 Potassium 3.8 mmol/L (3.5-5.1) 08/02/24 06:02 Chloride 108 mmol/L (98-107) H 08/02/24 06:02 Carbon Dioxide 25 mmol/L (22-29) 08/02/24 06:02 Anion Gap 10.8 (5-19) 08/02/24 06:02 BUN 13 mg/dL (8-23) 08/02/24 06:02 Creatinine 1.0 mg/dL (0.7-1.2) 08/02/24 06:02 GFR Calculation 75.2 mL/min (90-130) L 08/02/24 06:02 Glucose 124 mg/dL (65-115) H 08/02/24 06:02 Estimat Average Glucose 123 08/02/24 06:02 Hemoglobin A1c 5.9 % (4.0-6.0) 08/02/24 06:02 Calculated Osmolality 292 mOsm/kg (285-295) 08/02/24 06:02 Lactic Acid 1.1 mmol/L (0.5-2.2) 08/01/24 17:39 Calcium 7.5 mg/dL (8.5-10.5) L 08/02/24 06:02 Phosphorus 3.1 mg/dL (2.5-4.5) 08/02/24 06:02 Magnesium 2.1 mg/dL (1.7-2.3) 08/02/24 06:02 Iron 101 ug/dL (59-158) 08/01/24 15:25 TIBC 302 mcg/dl 08/01/24 15:25 % Saturation 33.4 % (20-50) 08/01/24 15:25 Unsat Iron Binding 201 ug/dL (112-347) 08/01/24 15:25 Total Bilirubin 0.5 mg/dL (0.15-1.2) 08/02/24 06:02 AST 24 U/L (0-40) 08/02/24 06:02 ALT 41 U/L (0-41) 08/02/24 06:02 Alkaline Phosphatase 76 U/L (40-130) 08/02/24 06:02 Creatine Kinase 141 U/L (39-308) 08/01/24 15:25 Troponin T Baseline 7 ng/L (0-15) 08/01/24 15:25 Troponin T 120 Minute 8.57 ng/L (0-15) 08/01/24 17:39 Delta Troponin T 1.57 ABS# (0-10) 08/01/24 17:39 Troponin T Hi Sens 6Hr 11.83 ng/L (0-15) 08/01/24 21:38 Troponin T Hi Sens 6Hr Delta 4.83 ng/L (0-12) 08/01/24 21:38 Total Protein 5.8 g/dL (6.6-8.7) L 08/02/24 06:02 Albumin 3.7 g/dL (3.5-5.2) 08/02/24 06:02 Globulin 2.1 g/dL (1.3-4.6) 08/02/24 06:02 Triglycerides 115 mg/dL (0-150) 08/02/24 06:02 Cholesterol 135 mg/dL (0-200) 08/02/24 06:02 LDL Cholesterol, Calc 84 mg/dL (50-129) 08/02/24 06:02 HDL Cholesterol 28 mg/dL (60-100) L 08/02/24 06:02 LDL/HDL Ratio 3.00 RATIO (0.00-3.22) 08/02/24 06:02 Cholesterol/HDL Ratio 4.82 mg/dL (1.0-5.00) 08/02/24 06:02 Vitamin B12 490 pg/mL (232-1245) 08/01/24 15:25 Procalcitonin 0.07 ng/mL (0-0.5) 08/01/24 15:25 TSH 1.96 uIU/mL (0.27-4.20) 08/01/24 15:25 Urine Color Yellow (Yellow) 08/01/24 21:20 Urine Appearance Clear (CLEAR) 08/01/24 21:20 Urine pH 5.0 (5-7) 08/01/24 21:20 Ur Specific [place] 1.019 (1.005-1.030) 08/01/24 21:20 Urine Protein Negative (Negative) 08/01/24 21:20 Urine Glucose (UA) Negative (Normal) 08/01/24 21:20 Urine Ketones Negative (Negative) 08/01/24 21:20 Urine Blood Negative (Negative) 08/01/24 21:20 Urine Nitrate Negative (Negative) 08/01/24 21:20 Urine Bilirubin Negative (Negative) 08/01/24 21:20 Urine Urobilinogen 0.2 mg/dL (Negative) 08/01/24 21:20 Ur Leukocyte Esterase Negative (Negative) 08/01/24 21:20 Urine RBC 0-2 /hpf (0-2) 08/01/24 21:20 Urine WBC 0-5 /hpf (0-5) 08/01/24 21:20 Ur Squamous Epith Cells 0-5 /hpf (0-5) 08/01/24 21:20 Amorphous Sediment Not Reportable 08/01/24 21:20 Urine Bacteria None seen /hpf (NONE) 08/01/24 21:20 Hyaline Casts 0.40 /lpf 08/01/24 21:20 Vitals Last Vital Signs Temp 97.9 F 08/02/24 07:17 Pulse 62 08/02/24 07:17 Resp 16 08/02/24 07:17 BP 119/78 08/02/24 07:17 Pulse Ox 98 08/02/24 07:17 O2 Del Method Room Air 08/02/24 07:17 Discharge Plan Discharge Patient Disposition: Home Condition: Stable Prescriptions: New diltiazem HCl 120 mg capsule,extended release 24hr 120 mg PO DAILY Qty: 30 0RF Eliquis 5 mg tablet 5 mg PO BID Qty: 60 5RF Continued aspirin [Adult Low Dose Aspirin] 81 mg tablet,delayed release (DR/EC) 81 mg PO BEDTIME levocetirizine 5 mg Tablet 5 mg PO BEDTIME pravastatin 40 mg Tablet 40 mg PO BEDTIME Discontinued losartan 100 mg tablet 100 mg PO BEDTIME Discharge Orders: Discharge Order (Routine); Ordered 08/02/24 Ordered By: Luis M Ellsworth Referrals: Luis M Riley MD [Physician] - 08/24/24 1:30 pm James Sosa MD [Physician] - 4-7 days (We have notified your physician's clinic of the need for a follow-up appointment to be scheduled. If you have not heard from them within the next 2 business days, please call them directly. ) Discharge Diet: Cardiac Discharge Activity: Resume usual activity Patient Instructions: Diltiazem (By mouth) (Qing, Qing CD, Cardizem LA, Cardizem SR), Apixaban (By mouth) (Eliquis), A-fib (Atrial Fibrillation) (DC), Hypertension (DC), Opioid Safety Discharge Attestations Time Spent in Discharge Care*: less than 30 min Quality Metrics Clinical Quality Measures [ No reported AMI, CVA or VTE this stay] Coding Level of Care Code Acute Code for Chg Fwd Diagnoses Atrial fibrillation with RVR I48.91 Primary hypertension I10 Hypertension type: primary hypertension
--- NOTE | 2024-08-02 09:30 | USCV_ITS ---
Lee Willis Age: 63 Gender: M : 1960 Exam Date: 08/02/2024 13:12 Ordering Phys: Chris Arenas MD Technologist: [place] [facility] [place]: nstemi BP: 134 / 80 HR: 78 Rhythm: Sinus Technical Quality: Adequate MEASUREMENTS (Male / Female) Normal Values 2D ECHO LV Diastolic Diameter PLAX 5.0 cm 4.2 - 5.9 / 3.9 - 5.3 cm IVS Diastolic Thickness 1.1 cm 0.6 - 1.0 / 0.6 - 0.9 cm IVS Systolic Thickness 1.6 cm LVPW Diastolic Thickness 1.1 cm 0.6 - 1.0 / 0.6 - 0.9 cm LVPW Systolic Thickness 1.6 cm LVOT Diameter 2.1 cm LV Ejection Fraction 2D Teich 66.3 % LV Ejection Fraction MOD 4C 58.8 % LV Ejection Fraction MOD 2C 65.2 % LV Ejection Fraction 2C AL 64.9 % LA Diameter 3.7 cm RA Systolic Volume 4C AL 17.6 ml RA Systolic Volume 4C MOD 18.0 ml LA Sys Volume AL 35.7 cm cubed LA Sys Volume Index AL 17.1 cm cubed/m squared Aorta at Sinotubular Diameter 3.6 cm IVC Diameter 1.6 cm M-MODE LA Ao Ratio MM 0.9 AV Cusp Separation MM 2.4 cm DOPPLER AV Peak Velocity 127.0 cm/s LVOT Peak Velocity 82.0 cm/s AV Area Cont Eq vti 2.9 cm squared AV Area Cont Eq pk 2.2 cm squared MV Peak Velocity 107.0 cm/s MV Area PHT 5.3 cm squared Mitral E to A Ratio 1.4 TV Peak Velocity 153.5 cm/s TR Peak Velocity 161.0 cm/s TR Peak Gradient 10.4 mmHg TV Peak E Velocity 111.0 cm/s Right Atrial Pressure 3.0 mmHg Pulmonary Artery Systolic Pressu 13.4 mmHg PV Peak Velocity 117.0 cm/s FINDINGS Left Ventricle Normal left ventricular size, systolic function and wall thickness, with no regional wall motion abnormalities. Left ventricular ejection fraction is estimated at 60 %. Grade I/IV diastolic dysfunction (abnormal relaxation filling pattern), normal to mildly elevated filling pressures. Right Ventricle The right ventricle is normal in size and function. Right Atrium The right atrium is normal in size. Left Atrium The left atrium is normal in size. Mitral Valve Structurally normal mitral valve without significant stenosis or prolapse. There is no mitral regurgitation. Aortic Valve Structurally normal aortic valve without significant sclerosis or stenosis. There is no aortic regurgitation. Tricuspid Valve Structurally normal tricuspid valve without significant stenosis or regurgitation. Pulmonary artery systolic pressure is normal. Pulmonic Valve Structurally normal pulmonic valve without significant stenosis. There is no pulmonic regurgitation. Pericardium Normal pericardium without effusion. Aorta Normal ascending aorta dimension. IVC The inferior vena cava appears normal. CONCLUSIONS Normal left ventricular size, systolic function and wall thickness, with no regional wall motion abnormalities. Left ventricular ejection fraction is estimated at 60 %. Grade I/IV diastolic dysfunction (abnormal relaxation filling pattern), normal to mildly elevated filling pressures. No significant valve abnormalities. There is no pericardial effusion. Pulmonary artery systolic pressure is within normal limits. Right atrial pressure is around 5 mm of mercury. Luis M Riley MD (Electronically Signed) Final Date: 03 August 2024 12:29 S
--- NOTE | 2024-08-02 09:35 | PC.CHAP ---
Pastoral Care Encounter/Spiritual Assessment Type of Contact [] Declined placement manager visit [] Patient/Family/Request visit [] Outpatient visit [] Follow-up visit [] Physician referral [] Code/Alert [x] Routine visit [] Staff referral [] Actively dying [] Patient sleeping [] Family support [] [] Out of room [] Palliative care [] [] Receiving care in room [] Pre-surgical visit [] Trauma [] Long length of stay [] ICU visit [] Other: Relational/Emotional Strength [] Patient feels connected with others/family/visitors/staff [] Distress [] Loneliness/isolation [] Abandonment Spirituality of Patient [x] Person of Altagracia [] Attends Shinto of their Altagracia [x] Believes in Prayer [] Reads Bible or Voodoo materials [] There are Spiritual issues to be addressed Motion And Time Study Teacher Interventions [x] Prayer [x] Active listening [] Non-anxious presence [] Spiritual/emotional support [] Crisis/trauma care [] Spiritual counseling [] Bereavement support [] Provided bereavement packet [x] Provided Bible/devotional materials [] Provided toy/stuffed animal, coloring book to patient or family member [] Provided Communion [] Anointing/[place] [] Salvation [x] Completed spiritual assessment [] Other: Impact on Illness or Injury [] Angry [] Fearful [] Anxious [] Often cries [] Exhaustion [] Unable to work [] Unable to attend latter day [] Unable to walk/stand [] Unable to read [] Unable to drive [] Unable to eat/drink [] Unable to sleep [] Unable to be with family [] Patient intubated [] Other: Summary Time spent with patient 10 min
--- NOTE | 2024-08-02 11:12 | PC.NURSE ---
Patients NS is discontinued per Dr Falcon.
[2024-08-02 11:16] VITALS: BP 134/80; PULSE 65; RESP 16; TEMP 36.7; O2SAT 99
[2024-08-02 11:19] LABS: Folate Level 12.5 ng/mL (4.5-32.2)
[2024-08-02 16:00] VITALS: BP 148/77; PULSE 64; RESP 18; TEMP 36.9; O2SAT 98
== END 2024-08-02 17:29 | disposition home or self-care (01) ==
LOC: ER 15:38 → CSU 20:24
PROVIDERS: Student in an Organized Health Care Education/Training Program; Admitting Provider Student in an Organized Health Care Education/Training Program; Emergency Provider Emergency Medicine; PCP Clinical Nurse Specialist Adult Health; Visit Provider Internal Medicine
DX: I48.91 Unspecified atrial fibrillation (principal); I10 Essential (primary) hypertension; R73.03 Prediabetes; Z79.82 Long term (current) use of aspirin; K21.9 Gastro-esophageal reflux disease without esophagitis; E78.5 Hyperlipidemia, unspecified; Z87.891 Personal history of nicotine dependence
CPT/HCPCS: 36415; 71045; 80053; 80061; 81001; 82550; 82607; 82746; 83036; 83540; 83550; 83605; 83735; 84100; 84145; 84443; 84484; 85025; 85378; 85610; 93005; 93306; 94664; 96365; 96366; 96375; 99285; A9270; G0378; J3490; J7030

== ENCOUNTER → 2024-08-24 13:29 | Outpatient (BNVA) | payer OTHER, SELFPAY | PROVIDERS: PCP Clinical Nurse Specialist Adult Health; Visit Provider Internal Medicine Cardiovascular Disease | DX: I48.91 Unspecified atrial fibrillation (principal); I49.8 Other specified cardiac arrhythmias | CPT/HCPCS: 93005 ==

== ENCOUNTER → 2025-03-03 12:33 | Outpatient (BNVA) | payer OTHER, SELFPAY | PROVIDERS: PCP Family Medicine; Visit Provider Internal Medicine Cardiovascular Disease | DX: I48.91 Unspecified atrial fibrillation (principal); Z79.01 Long term (current) use of anticoagulants; Z79.82 Long term (current) use of aspirin; I10 Essential (primary) hypertension; Z87.891 Personal history of nicotine dependence | CPT/HCPCS: 99214 ==

== ENCOUNTER → 2025-06-06 07:06 | Outpatient (BNVA) | payer OTHER, SELFPAY | PROVIDERS: PCP Family Medicine; Visit Provider Family Medicine | DX: N40.0 Benign prostatic hyperplasia without lower urinary tract symptoms (principal); R73.03 Prediabetes; I10 Essential (primary) hypertension | CPT/HCPCS: 80053; 83036; 84153 ==

== ENCOUNTER → 2025-06-21 13:11 | Outpatient (BNVA) | payer OTHER, SELFPAY | PROVIDERS: PCP Family Medicine; Visit Provider Nurse Practitioner Family | DX: H01.134 Eczematous dermatitis of left upper eyelid (principal); H01.131 Eczematous dermatitis of right upper eyelid; L23.9 Allergic contact dermatitis, unspecified cause; L57.8 Other skin changes due to chronic exposure to nonionizing radiation; L81.4 Other melanin hyperpigmentation; I78.9 Disease of capillaries, unspecified; D69.2 Other nonthrombocytopenic purpura; Q80.8 Other congenital ichthyosis; H61.031 Chondritis of right external ear; D22.62 Melanocytic nevi of left upper limb, including shoulder; L57.0 Actinic keratosis | CPT/HCPCS: 17000; 99214 ==